=== PATIENT | female | born 1995 | race Two or more races ===

== ENCOUNTER 2019-10-08 23:23 | Emergency (ER) | payer OTHER ==
[~2019-10-08] VITALS: Ht 162.6 cm; Wt 68.0 kg
--- NOTE | 2019-10-08 23:25 | NUR ---
TO E BED 13 BIB [employer] FOR MEDICAL CLEARANCE FOR BOOKING. PT VERY EMOTIONAL, R HAND PAIN. NOTED PT MOVING HANDS AND FINGERS WITHOUT DIFFICULTY AND PAIN. PENDING ER MD HERNANDEZ.
--- NOTE | 2019-10-09 00:03 | NUR ---
PT MEDICALLY CLEARED FOR BOOKING PER ER MD. Patient discharged to [employer] custody in stable condition. Written and verbal after care instructions given. Patient verbalizes understanding of instruction.
[2019-10-09 00:31] VITALS: BP 134/86
== END 2019-10-09 00:05 ==
LOC: ER 23:27
DX: M79.641 Pain in right hand (principal); F17.200 Nicotine dependence, unspecified, uncomplicated; Z91.010 Allergy to peanuts